=== PATIENT | male | born 1965 | race Caucasian/White ===

== ENCOUNTER 2016-10-14 13:53 | Emergency (ER) | payer OTHER ==
--- NOTE | ~2016-10-14 | CR21 ---
[facility] A Service of [facility] RADIOLOGY TEXT RESULTS PATIENT: GILBERT REECE LOCATION: [facility] : 61 UNIT #: [id number] AGE: [address]: Keli Nieto SEX: M ORDER DR: [id number] [facility] [address] [place], [place] [address] [id number] E MR#: [id number] Acc #: [id number] NAME: GILBERT REECE. : 1965 SEX: M STUDY DATE/TIME: 10/14/2016 13:01 UNIT: TX ROOM: STUDY DESCRIPTION: CR Ankle Min 3 Views Rt Attending Physician: Keli Nieto P.A.-C. Referring Physician: Primary Care Physician No Ordering Physician: Keli Nieto P.A.-C. Primary Care Physician: Primary Care Physician No MEDICAL IMAGING REPORT This report is preliminary unless electronic signature is present EXAM Right ankle 10/14/2016 HISTORY 51-year-old male with right ankle pain and swelling status post fall down stairs 1 day ago. COMPARISON Right foot same date. FINDINGS 3 views of the right ankle demonstrate a subtle nondisplaced oblique fracture through the distal metaphysis of the fibula. No other displaced fractures are identified. Ankle mortise symmetric. Talar dome intact. Small tibiotalar effusion. Mild lateral ankle soft tissue swelling. IMPRESSION Subtle nondisplaced oblique fracture of the distal fibular metaphysis. No ankle dislocation. Small tibiotalar effusion. Mild lateral ankle soft tissue swelling. Dictated by... Steve Becerra M.D. THIS IS AN ELECTRONICALLY VERIFIED REPORT Steve Becerra M.D. at 10/16/2016 7:46 AM MORAIMA/kimi TD: 10/15/2016 12:16 JOB #: [id number] MEDICAL IMAGING REPORT [facility] A Service [facility] RADIOLOGY TEXT RESULTS PATIENT: GILBERT REECE LOCATION: [facility] : 61 UNIT #: [id number] AGE: [address]: Keli Nieto SEX: M ORDER DR: JANUSZ
--- NOTE | ~2016-10-14 | CR127 ---
[facility] A Service [facility] RADIOLOGY TEXT RESULTS PATIENT: GILBERT REECE LOCATION: [facility] : 61 UNIT #: [id number] AGE: [address]: Keli Nieto SEX: M ORDER DR: [id number] [facility] [address] [place] [address] [place], [place] [address] [id number] E MR#: [id number] Acc #: [id number] NAME: GILBERT REECE. : 1965 SEX: M STUDY DATE/TIME: 10/14/2016 13:01 UNIT: [facility] ROOM: STUDY DESCRIPTION: CR Foot Complete Min 3 View Rt Attending Physician: Keli Nieto P.A.-C. Referring Physician: Primary Care Physician No Ordering Physician: Keli Nieto P.A.-C. Primary Care Physician: Primary Care Physician No MEDICAL IMAGING REPORT This report is preliminary unless electronic signature is present EXAM Right foot 10/14/2016 HISTORY Right foot pain and swelling status post fall down stairs yesterday. COMPARISON Right ankle same date. FINDINGS 3 views of the right foot again demonstrate a subtle nondisplaced oblique fracture of the distal fibular metaphysis. No other displaced fractures are identified in the foot. Trace tibiotalar effusion. Small plantar calcaneal spur. Mild soft tissue swelling around the foot and ankle. IMPRESSION 1. Subtle nondisplaced oblique fracture of the distal fibular metaphysis, better visualized on the right ankle series performed the same date and dictated separately. 2. No other displaced fracture in the right foot. 3. Mild soft tissue swelling around the foot and ankle. Dictated by... Steve Becerra M.D. THIS IS AN ELECTRONICALLY VERIFIED REPORT Steve Becerra M.D. at 10/16/2016 7:46 AM MORAIMA/kimi TD: 10/15/2016 12:18 JOB #: [id number] [facility] A Service [facility] RADIOLOGY TEXT RESULTS PATIENT: GILBERT REECE LOCATION: [facility] #: [id number] : 61 UNIT #: [id number] AGE: [address]: Keli Nieto SEX: M ORDER DR: MEDICAL IMAGING REPORT COPY
--- NOTE | ~2016-10-14 | CR173 ---
[facility] A Service of [facility] RADIOLOGY TEXT RESULTS PATIENT: GILBERT REECE LOCATION: [facility] : 61 UNIT #: [id number] AGE: [address]: Keli Nieto SEX: M ORDER DR: [id number] [facility] [address] [place], [place] [address] [id number] E MR#: [id number] Acc #: [id number] NAME: GILBERT REECE. : 1965 SEX: M STUDY DATE/TIME: 10/14/2016 13:06 UNIT: [facility] ROOM: STUDY DESCRIPTION: CR Knee 3 Views Rt Attending Physician: Keli Nieto P.A.-C. Referring Physician: Primary Care Physician No Ordering Physician: Keli Nieto P.A.-C. Primary Care Physician: Primary Care Physician No MEDICAL IMAGING REPORT This report is preliminary unless electronic signature is present EXAM Right knee 10/14/2016 HISTORY 51-year-old male with right knee pain and swelling status post fall down stairs 1 day ago. COMPARISON Right knee x-rays 10/17/2008. Right knee MRI 02/01/2009 FINDINGS 3 views of the right knee demonstrate no evidence of a displaced fracture or dislocation. There is a small to moderate joint effusion. Advanced degenerative changes of the patellofemoral joint. Moderate degenerative changes in medial and lateral compartments. Mild prepatellar soft tissue swelling. IMPRESSION 1. No evidence of a displaced fracture or dislocation. 2. Tricompartmental arthrosis. 3. Small to moderate joint effusion. 4. Mild prepatellar soft tissue swelling. Dictated by... Steve Becerra M.D. THIS IS AN ELECTRONICALLY VERIFIED REPORT Steve Becerra M.D. at 10/16/2016 7:46 AM JKB/to TD: 10/15/2016 12:19 JOB #: [id number] [facility] A Service [facility] RADIOLOGY TEXT RESULTS PATIENT: GILBERT REECE LOCATION: [facility] #: [id number] : 61 UNIT #: [id number] AGE: [address]: Keli Nieto SEX: M ORDER DR: MEDICAL IMAGING REPORT COPY
[~2016-10-14 13:53] MED LIST: ABILIFY PO; BACTROBAN15 GM TOP; CYMBALTA PO; KLONOPIN PO; LEVAQUIN PO; NORVASC PO; PERCOCET5/325 PO; REMERON PO; WELLBUTRIN PO
[2016-12-21] MEDS ORDERED: [UNRECOGNIZED DRUG - OTHER] (09:03)
[2016-12-21] MEDS ORDERED: PURALOR CI TAB1 EACH (09:07)
[2017-02-07] MEDS ORDERED: DIET PILL PO (15:59)
[2017-02-07] MEDS ORDERED: REMERON30 MG PO (16:20)
[2017-02-07] MEDS ORDERED: OXCARBAZEPINE600 MG PO (16:21)
[2017-02-07] MEDS ORDERED: ROBAXIN500 MG PO (16:21)
[2017-02-07] MEDS ORDERED: [UNRECOGNIZED DRUG - OTHER] PO (16:22)
[2017-02-07] MEDS ORDERED: LEVOTHYROXINE100 MC1 PO (16:22)
[2017-02-07] MEDS ORDERED: NEURONTIN300 MG PO (16:24)
[2017-02-07] MEDS ORDERED: LINZESS145 MCG PO (16:25)
[2017-02-07] MEDS ORDERED: ALEVE220 M1 PO (16:25)
[2017-02-20] MEDS ORDERED: VOLTAREN75 MG PO (16:20)
[2017-02-20] MEDS ORDERED: BUPROPION XL300 MG PO (16:20)
[2017-02-20] MEDS ORDERED: SEROQUEL XR400 M1 PO (16:21)
[2017-02-20] MEDS ORDERED: ZESTORETIC 20-1 EACH PO (16:23)
[2017-02-20] MEDS ORDERED: UROXATRAL10 MG PO (16:24)
[2017-02-20] MEDS ORDERED: EFFEXOR XR150 MG PO (16:24)
[2017-02-20] MEDS ORDERED: ZOCOR20 MG PO (16:24)
[2017-02-20] MEDS ORDERED: OMEPRAZOLE40 M1 PO (16:25)
== END 2016-10-14 14:18 | disposition home or self-care (01) ==
LOC: CFTX 13:53
DX: S82.64XA Nondisplaced fracture of lateral malleolus of right fibula, initial encounter for closed fracture (principal); S80.211A Abrasion, right knee, initial encounter; E03.9 Hypothyroidism, unspecified; F31.9 Bipolar disorder, unspecified; K21.9 Gastro-esophageal reflux disease without esophagitis; I10 Essential (primary) hypertension; Z86.14 Personal history of Methicillin resistant Staphylococcus aureus infection; Z87.891 Personal history of nicotine dependence; W10.9XXA Fall (on) (from) unspecified stairs and steps, initial encounter; Y92.009 Unspecified place in unspecified non-institutional (private) residence as the place of occurrence of the external cause
CPT/HCPCS: 29515; 73562; 73610; 73630; 96372; 99283; 99284; J1885

== ENCOUNTER 2016-11-02 17:58 | Observation (INO) | payer OTHER ==
--- NOTE | ~2016-11-02 | HP ---
Unit #: [id number] #: [id number] Patient: GILBERT POTTER [id number] [address] [address] [id number] I MR#: [id number] NAME: GILBERT POTTER. ROOM: 242 Age: 51 Sex: M Admission Date: 11/02/2016 : 1965 Attending Physician: Pernell Dhaliwal M.D. Referring Physician: No Primary Care Physician Primary Care Physician: No Primary Care Physician HISTORY AND PHYSICAL REASON FOR ADMISSION The patient is status post possible meat impaction in the emergency room. HISTORY OF PRESENT ILLNESS Mr. Potter is a 51-year-old white gentleman who lives at home. The patient presents with a history of possible bullous meat impaction in the esophagus after he was eating something that got stuck. 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 The patient does mention a history of dysphagia upon admission. There is no other significant history. PAST MEDICAL HISTORY 1. History of hypertension. 2. Depression. 3. History of hyperlipidemia. 4. Back pain. 5. The patient denies any history of abdominal surgeries. PAST SURGICAL HISTORY History of prostate surgery and MRSA infection debridement. SOCIAL HISTORY The patient does smoke, but does not drink alcohol. FAMILY HISTORY There is no family history of colon or pancreatic cancer or liver disease. ALLERGIES He mentions allergy to steroids, however, the nature of the allergy is unknown. HOME MEDICATIONS 1. Mirtazapine. 2. Seroquel. 3. Effexor. 4. Mellaril. 5. Lamotrigine. 6. Zocor. 7. Neurontin. 8. Alpha Zosyn. 9. Zestoretic. 10. Baclofen. REVIEW OF SYSTEMS Unit #: [id number] #: [id number] Patient: GILBERT POTTER Detailed review of organ systems does not reveal any recent weight loss. No history of fever, chills or rigors, headache, seizure, chest pain, syncope. No history of cough, expectoration, hemoptysis. No history of dysuria, hematuria or focal seizures, (1) weakness. The rest of the review of organ systems is unremarkable. PHYSICAL EXAMINATION GENERAL: The patient is alert and oriented. Appears comfortable. VITALS: Stable. Temperature 98.0, pulse 100 per minute, respiratory rate 18, blood pressure 160/102, oxygen saturation 98% on room air. HEENT: No pallor, icterus, lymphadenopathy, peripheral edema. LUNGS: Normal air entry. HEART: Normal heart sounds. No murmurs auscultated. ABDOMEN: Soft and nontender. Liver and spleen are not palpable. Bowel sounds normal. ASSESSMENT/PLAN The patient has possible bullous meat impaction of the esophagus. An upper endoscopy and possible disimpaction will be done shortly. The pros and cons of the procedure and potential risks and complications have been discussed with the patient and he was reassured. Thank you for asking us to see this gentleman. I appreciate the consult. Dictated by Destiny Mckinley/иван TD: 11/03/2016 10:35 JOB #: [id number] CC: Sudhakar Soriano Jr., Yadira.PHernánRKellee Dhaliwal M.D. HISTORY AND PHYSICAL Page 1 of 1 X Pernell Dhaliwal MD X HISTORY AND PHYSICAL
--- NOTE | ~2016-11-02 | DS ---
Unit #: [id number] #: [id number] Patient: GILBERT REECE [id number] [facility]. [address] [address] [id number] I MR#: [id number] NAME: GILBERT REECE. ROOM: 242 Age: 51 Sex: M Admission Date: 11/02/2016 : 1965 Discharge Date: 11/03/2016 Attending Physician: Pernell Dhaliwal M.D. Referring Physician: Alma Primary Care Physician Primary Care Physician: Sudhakar Soriano Jr., A.P.R.N. DISCHARGE SUMMARY DISCHARGE DIAGNOSIS The patient presented with bolus food impaction. PROCEDURE DONE Upper GI endoscopy and biopsy. POSTOPERATIVE DIAGNOSES 1. Patient had evidence of distal erosive esophagitis. 2. Pulliam esophagus. 3. Hiatus hernia. 4. Antral gastritis. 5. No foreign body was seen. RECOMMENDATIONS The patient will be discharged home on omeprazole 40 mg p.o. daily In addition, all of his preadmission medications were continued. NARRATIVE This gentleman was admitted with a history of bolus meat impaction. However, endoscopy the day after admission did not show any foreign body and the findings as above were noted. 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 Dictated by... Destiny Mckinley/david TD: 11/03/2016 10:41 JOB #: [id number] Unit #: [id number] #: [id number] Patient: GILBERT REECE DISCHARGE SUMMARY Page 1 of 1 X Pernell Dhaliwal MD X DISCHARGE SUMMARY
--- NOTE | ~2016-11-02 | OR ---
Unit #: [id number] #: [id number] Patient: GILBERT REECE [id number] [place] [facility]. [place], [place] [address] [id number] I MR#: [id number] NAME: GILBERT REECE. ROOM: 242 Date of Procedure: 11/03/2016 Admission Date: 11/02/2016 Surgeon: Pernell Dhaliwal M.D. : 1965 Attending Physician: Pernell Dhaliwal M.D. OPERATIVE REPORT PRIMARY CARE PHYSICIAN Sudhakar Soriano A.P.R.N. PREOPERATIVE DIAGNOSIS The patient has presented with a history of bolus meat impaction. PROCEDURES PERFORMED Upper gastrointestinal endoscopy and biopsy. POSTOPERATIVE DIAGNOSES 1. No foreign body was seen in the esophagus. The patient however had evidence of hiatus hernia and distal erosive esophagitis. 2. Pulliam esophagus. 3. Mild antral gastritis. A biopsy was obtained from the antrum for CLOtest. In addition, biopsies were also obtained from the distal esophagus for evidence of dysplasia. RECOMMENDATIONS The patient can be discharged home on omeprazole 40 mg p.o. daily. He was discharged after reassurance. SEDATION USED MAC. DESCRIPTION OF PROCEDURE Following detailed explanation of potential risks and complications of an upper endoscopy, namely perforation, bleeding, and complication related to sedation, the patient was brought to GI lab and laid in the left lateral decubitus position. Lubricated tip of the Olympus video upper endoscope was passed through the bite block into the proximal esophagus under direct vision. The entire esophageal mucosa was examined. The patient was noted to have distal erosive esophagitis along with evidence of Pulliam esophagus. In addition, a small hiatus hernia was noted. The scope was then advanced into the gastric cavity and the latter was insufflated. Mucosa of the fundus, body, and antrum was examined and prepyloric antral erosions and erythema were noted indicating antral gastritis. Pylorus was intubated with visualization of the normal duodenal bulb and second and third part of the duodenum. Upon withdrawal and retroflexion, incisura, cardia, and greater curve was examined and biopsy was obtained from the antrum for CLOtest. The scope was then withdrawn in the distal esophagus. Multiple biopsies were obtained from the distal esophageal mucosa from Pulliam segment and sent for histology. The entire esophageal mucosa was Unit #: [id number] #: [id number] Patient: GILBERT REECE examined all the way up to pharynx. No additional findings were noted. The patient tolerated the procedure without any postprocedure complications. Dictated by... Destiny Mckinley/jameson TD: 11/04/2016 01:23 JOB #: [id number] CC: Sudhakar Soriano Jr., A.P.R.NHernán OPERATIVE REPORT Page 1 of 1 X Pernell Dhaliwal MD X PROCEDURE OPERATIVE NOTE
[2016-11-02 19:30] LABS: BASOPHIL% 0.3 % (0-2.5); EOSINOPHIL# 0.7 X10e3 (0-0.7); EOSINOPHIL% 5.6 % (0.0-7.0); HEMATOCRIT 40.7 % (38.0-50.0); HEMOGLOBIN 13.6 gm/dL (13.0-16.0); LYMPHOCYTE# 2.5 X10e3 (1.0-3.5); LYMPHOCYTE% 20.4 % (17.0-45.0); MEAN CELL VOLUME 90.2 FL (83-96); MEAN CORPUSCULAR HEMOGLOBIN 30.3 PG (28-34); MEAN CORPUSCULAR HGB CONC 33.6 g/dL (30-36); MONOCYTE# 0.8 X10e3 (0-1.0); NEUTROPHIL# 8.1 X10e3 (1.5-7.1); NEUTROPHIL% 66.7 % (40-75); PLATELET COUNT 308 X10e3 (140-420); RED BLOOD COUNT 4.51 X10e (3.90-5.60); RED CELL DISTRIBUTION WIDTH 13.1 % (11.0-15.5); WHITE BLOOD COUNT 12.2 X10e3 (4.0-10.5)
[2016-11-02 19:36] LABS: DIFF IND NO
[2016-11-02] MEDS ORDERED: MIRTAZAPINE30 M1 PO (19:58)
[2016-11-02 19:59] LABS: ALBUMIN SERUM 4.2 g/dL (3.5-5.0); ALKALINE PHOSPHATASE 72 U/L (32-92); ALT (SGPT) 23 U/L (10-40); AST (SGOT) 20 U/L (10-42); BILIRUBIN,TOTAL 0.3 mg/dL (0.2-2.0); BLOOD UREA NITROGEN 16 mg/dL (9-23); CALCIUM SERUM 9.2 mg/dL (8.4-10.2); CARBON DIOXIDE 23 mmol/L (22-31); CHLORIDE 102 mmol/L (100-111); GLOM FILT RATE Estimated 85.6 mL/min (>60); GLUCOSE FASTING 116 mg/dL (70-110); POTASSIUM 4.3 mmol/L (3.5-5.1); PROTEIN TOTAL SERUM 7.2 g/dL (6.0-8.3); SODIUM 134 mmol/L (135-145)
[2016-11-02] MEDS ORDERED: SEROQUEL400 MG PO (19:59)
[2016-11-02] MEDS ORDERED: EFFEXOR75 M3 PO (20:00)
[2016-11-02] MEDS ORDERED: MELLARIL50 MG PO (20:01)
[2016-11-02] MEDS ORDERED: LAMOTRIGINE25 M1 PO (20:02)
[2016-11-02] MEDS ORDERED: ZOCOR10 MG PO (20:03)
[2016-11-02] MEDS ORDERED: NEURONTIN300 MG PO (20:03)
[2016-11-02] MEDS ORDERED: ALFUZOSIN HCL E10 MG PO (20:04)
[2016-11-02] MEDS ORDERED: BACLOFEN20 M1 PO (20:05)
[2016-11-02] MEDS ORDERED: ZESTORETIC 10-1 EAC1 (20:05)
[2016-11-02 20:08] LABS: BILIRUBIN, DIRECT <0.1 mg/dL (0.0-0.2); BILIRUBIN,INDIRECT 0.2 mg/dL (0.0-0.9)
[2016-11-03] MEDS ORDERED: OMEPRAZOLE40 M1 PO (11:20)
[2016-12-21] MEDS ORDERED: [UNRECOGNIZED DRUG - OTHER] (09:03)
[2016-12-21] MEDS ORDERED: PURALOR CI TAB1 EACH (09:07)
[2017-02-07] MEDS ORDERED: DIET PILL PO (15:59)
[2017-02-07] MEDS ORDERED: REMERON30 MG PO (16:20)
[2017-02-07] MEDS ORDERED: ROBAXIN500 MG PO (16:21)
[2017-02-07] MEDS ORDERED: OXCARBAZEPINE600 MG PO (16:21)
[2017-02-07] MEDS ORDERED: [UNRECOGNIZED DRUG - OTHER] PO (16:22)
[2017-02-07] MEDS ORDERED: LEVOTHYROXINE100 MC1 PO (16:22)
[2017-02-07] MEDS ORDERED: NEURONTIN300 MG PO (16:24)
[2017-02-07] MEDS ORDERED: LINZESS145 MCG PO (16:25)
[2017-02-07] MEDS ORDERED: ALEVE220 M1 PO (16:25)
[2017-02-20] MEDS ORDERED: BUPROPION XL300 MG PO (16:20)
[2017-02-20] MEDS ORDERED: VOLTAREN75 MG PO (16:20)
[2017-02-20] MEDS ORDERED: SEROQUEL XR400 M1 PO (16:21)
[2017-02-20] MEDS ORDERED: ZESTORETIC 20-1 EACH PO (16:23)
[2017-02-20] MEDS ORDERED: ZOCOR20 MG PO (16:24)
[2017-02-20] MEDS ORDERED: EFFEXOR XR150 MG PO (16:24)
[2017-02-20] MEDS ORDERED: UROXATRAL10 MG PO (16:24)
[2017-02-20] MEDS ORDERED: OMEPRAZOLE40 M1 PO (16:25)
== END 2016-11-03 12:21 | disposition home or self-care (01) ==
LOC: CED 17:58 → CEDOF 21:10 → C2A 23:07
PROVIDERS: Physician Assistant Medical
DX: T18.128A Food in esophagus causing other injury, initial encounter (principal); K20.8 Other esophagitis; K22.70 Barrett's esophagus without dysplasia; K44.9 Diaphragmatic hernia without obstruction or gangrene; I10 Essential (primary) hypertension; E78.5 Hyperlipidemia, unspecified; F32.9 Major depressive disorder, single episode, unspecified
CPT/HCPCS: 80048; 80076; 85025; 87077; 88305; 96372; 99285; G0378; J1610; J2250

== ENCOUNTER → 2016-12-21 | Day surgery (SDC) | payer OTHER ==
[~2016-12-21] MED LIST changes: +ALEVE220 M1 PO; +ALFUZOSIN HCL E10 MG PO; +BACLOFEN20 M1 PO; +BUPROPION XL300 MG PO; +DIET PILL PO; +EFFEXOR XR150 MG PO; +EFFEXOR75 M3 PO; +LAMOTRIGINE25 M1 PO; +LEVOTHYROXINE100 MC1 PO; +LINZESS145 MCG PO; +MELLARIL50 MG PO; +MIRTAZAPINE30 M1 PO; +NEURONTIN300 MG PO; +OMEPRAZOLE40 M1 PO; +OXCARBAZEPINE600 MG PO; +PURALOR CI TAB1 EACH; +REMERON30 MG PO; +ROBAXIN500 MG PO; +SEROQUEL XR400 M1 PO; +SEROQUEL400 MG PO; +UROXATRAL10 MG PO; +VOLTAREN75 MG PO; +ZESTORETIC 10-1 EAC1; +ZESTORETIC 20-1 EACH PO; +ZOCOR10 MG PO; +ZOCOR20 MG PO; +[UNRECOGNIZED DRUG - OTHER]; +[UNRECOGNIZED DRUG - OTHER] PO
--- NOTE | ~2016-12-21 | OR ---
Unit #: [id number] #: [id number] Patient: GILBERT REECE [id number] [address] [address] [id number] O MR#: [id number] NAME: GILBERT REECE ROOM: Date of Procedure: 12/21/2016 Admission Date: 12/21/2016 Surgeon: Андрей Valencia M.D. : 1965 Attending Physician: Андрей Valencia M.D. Referring Physician: Андрей Valencia M.D. Primary Care Physician: Sudhakar Soriaon Jr., A.P.R.N. OPERATIVE REPORT PROCEDURE PERFORMED Colonoscopy, aborted. INDICATIONS FOR PROCEDURE A 51-year-old gentleman with chronic constipation and average risk for colorectal cancer, here for screening colonoscopy. MEDICATIONS Monitored anesthesia. POSTOPERATIVE FINDINGS Hard stool in the rectum. DESCRIPTION OF PROCEDURE Procedure was aborted. PLAN Reschedule with extended bowel prep. Description as above. Dictated by... Destiny Andrews/jameson TD: 12/21/2016 17:41 JOB #: [id number] OPERATIVE REPORT Page 1 of 1 X Андрей Valencia MD X PROCEDURE OPERATIVE NOTE
== END | disposition home or self-care (01) ==
LOC: COPS 07:45
DX: K59.09 Other constipation (principal); I10 Essential (primary) hypertension; I25.2 Old myocardial infarction; E78.5 Hyperlipidemia, unspecified; K21.9 Gastro-esophageal reflux disease without esophagitis; F17.210 Nicotine dependence, cigarettes, uncomplicated; Z87.01 Personal history of pneumonia (recurrent); Z53.8 Procedure and treatment not carried out for other reasons; Z88.8 Allergy status to other drugs, medicaments and biological substances; Z79.899 Other long term (current) drug therapy; Z98.890 Other specified postprocedural states

== ENCOUNTER → 2017-01-29 | Outpatient (CLI) | payer OTHER ==
[2017-01-29 12:10] LABS: HEMATOCRIT 40.5 % (38.0-50.0); HEMOGLOBIN 13.5 gm/dL (13.0-16.0); MEAN CELL VOLUME 91.8 FL (83-96); MEAN CORPUSCULAR HEMOGLOBIN 30.5 PG (28-34); MEAN CORPUSCULAR HGB CONC 33.3 g/dL (30-36); MEAN PLATELET VOLUME 7.7 FL (6.5-11.5); RED BLOOD COUNT 4.41 X10e (3.90-5.60); RED CELL DISTRIBUTION WIDTH 13.5 % (11.0-15.5); WHITE BLOOD COUNT 13.5 X10e3 (4.0-10.5)
[2017-01-29 13:06] LABS: ALBUMIN SERUM 4.1 g/dL (3.5-5.0); BILIRUBIN,TOTAL 0.3 mg/dL (0.2-2.0); BUN/CREATININE RATIO 27.69; CREATININE SERUM 1.3 mg/dL (0.6-1.4); GLOM FILT RATE Estimated 62.3 mL/min (>60)
[2017-01-30 17:14] LABS: T3 TOTAL 49 ng/dL (76-181)
== END | disposition home or self-care (01) ==
LOC: CLAB 11:28
PROVIDERS: Surgery
DX: E66.01 Morbid (severe) obesity due to excess calories (principal); E03.9 Hypothyroidism, unspecified
CPT/HCPCS: 36415; 80053; 84436; 84443; 84480; 85027

== ENCOUNTER → 2017-02-20 | Day surgery (SDC) | payer OTHER ==
--- NOTE | ~2017-02-20 | OR ---
Unit #: [id number] #: [id number] Patient: GILBERT REECE [id number] [address] [place], [place] [address] [id number] O MR#: [id number] NAME: GILBERT REECE ROOM: Date of Procedure: 02/20/2017 Admission Date: 02/20/2017 Surgeon: Baudilio Finley Jr., M.D. : 1965 Attending Physician: Baudilio Finley Jr., M.D. Primary Care Physician: Sudhakar Soriano Jr., A.P.R.N. OPERATIVE REPORT INDICATIONS FOR PROCEDURE The patient is a 51-year-old white male, who recently presented to the office complaining of progressive constipation, attempted scoping him in the past have been unsuccessful due to poor prep and he was desiring a colonoscopy to rule out obstruction or other abnormalities. He is brought in this time after prep at home for colonoscopy. The patient understands the procedure including the risks, including that of perforation and bleeding, and consents. PREOPERATIVE DIAGNOSES Abdominal pain, possible colonic obstruction with progressive constipation. POSTOPERATIVE DIAGNOSIS You-diverticulosis with no other abnormalities. ANESTHESIA MAC anesthesia. PROCEDURE PERFORMED Flexible colonoscopy to the cecum. DESCRIPTION OF PROCEDURE The patient was positioned in Quezada position with left side down. After being given MAC anesthesia, digital rectal examination was performed, which revealed no palpable mass or tenderness. No blood or stool in the rectal ampulla. Prostate was normal by palpation. The Olympus colonoscope was then advanced up in the colon and retroflexed down to the area of the anorectal region. There were no evidence of fissures. There were some small internal hemorrhoids. The scope was then straightened and advanced up in the rectosigmoid, in the sigmoid and descending colon, where there were few diverticula present without evidence of diverticulitis. The scope was then advanced around the splenic flexure and the transverse colon, around hepatic flexure and ascending colon, down in the area of the cecum. The light from the tip of the scope could be seen transilluminating through right lower quadrant abdominal wall area. Multiple attempts advancing the scope up the distal ileum were unsuccessful. There were multiple diverticula throughout the entire length of the colon compatible with you-diverticulosis, but no diverticulitis. There were no tumors, polyps, cancer, or AVMs. No evidence of any colitis or obstruction. The scope was slowly removed. The patient tolerated the procedure well and discharged in satisfactory condition. Unit #: [id number] #: [id number] Patient: GILBERT REECE Dictated by... Baudilio Finley Jr., M.D. JMB/jameson TD: 02/20/2017 16:41 JOB #: [id number] OPERATIVE REPORT Page 1 of 1 X Baudilio Finley MD X PROCEDURE OPERATIVE NOTE
== END | disposition home or self-care (01) ==
LOC: COPS 11:25
DX: K57.30 Diverticulosis of large intestine without perforation or abscess without bleeding (principal); K64.8 Other hemorrhoids; I25.2 Old myocardial infarction; E66.01 Morbid (severe) obesity due to excess calories; F17.210 Nicotine dependence, cigarettes, uncomplicated; K21.9 Gastro-esophageal reflux disease without esophagitis; E03.9 Hypothyroidism, unspecified; M17.11 Unilateral primary osteoarthritis, right knee; F31.9 Bipolar disorder, unspecified; F32.9 Major depressive disorder, single episode, unspecified; F41.9 Anxiety disorder, unspecified; I10 Essential (primary) hypertension; G47.30 Sleep apnea, unspecified; Z68.38 Body mass index [BMI] 38.0-38.9, adult; Z88.8 Allergy status to other drugs, medicaments and biological substances; Z79.1 Long term (current) use of non-steroidal anti-inflammatories (NSAID); Z98.890 Other specified postprocedural states; Z95.5 Presence of coronary angioplasty implant and graft